=== PATIENT | female | born 2000 | race Caucasian/White ===

== ENCOUNTER 2024-03-01 15:05 | Emergency (ER) | payer BC ==
[~2024-03-01] VITALS: Ht 157.5 cm; Wt 68.1 kg
[2024-03-01 15:21] VITALS: BP 132/89; PULSE 115; RESP 18; TEMP 98.4; O2SAT 99
== END 2024-03-01 16:22 | disposition home or self-care (01) ==
LOC: ER 15:06
DX: T16.1XXA Foreign body in right ear, initial encounter (principal); W44.H0XA Other sharp object unspecified, entering into or through a natural orifice, initial encounter; Y93.89 Activity, other specified; Y92.89 Other specified places as the place of occurrence of the external cause; Y99.8 Other external cause status
CPT/HCPCS: 69200; 99284